=== PATIENT | female | born 2005 | race Caucasian/White ===

== ENCOUNTER → 2024-01-14 | Outpatient (REF) | payer BC ==
[~2024-01-14] MED LIST: DIATRIZOATE MEGL/DIATRIZOA SOD 30 ML BTL PO ONE; IOPAMIDOL 370 MG/ML 100 ML INFUS..BTL INJ ONE
== END ==
LOC: CT 15:26
PROVIDERS: ATTEND Surgery
DX: R10.31 Right lower quadrant pain (principal)
CPT/HCPCS: 72193; 81025; Q9963; Q9967